=== PATIENT | male | born 2005 | race African-American/Black ===

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

== ENCOUNTER 2023-10-14 08:42 | Emergency (ER) | payer MEDICAID, OTHER ==
[~2023-10-14] VITALS: Ht 188 cm; Wt 59.9 kg
[2023-10-14 08:45] VITALS: BP 115/72; PULSE 98; TEMP 98.2; O2SAT 100
[2023-10-14 09:25] VITALS: BP 106/69; PULSE 98; RESP 18; O2SAT 100
[2023-10-14] MEDS ORDERED: NAPR-1704 PO (10:47)
== END 2023-10-14 11:11 | disposition home or self-care (01) ==
LOC: MED 08:42
DX: S62.660A Nondisplaced fracture of distal phalanx of right index finger, initial encounter for closed fracture (principal); S89.92XA Unspecified injury of left lower leg, initial encounter; J30.9 Allergic rhinitis, unspecified; Z79.1 Long term (current) use of non-steroidal anti-inflammatories (NSAID); W17.89XA Other fall from one level to another, initial encounter; Y93.89 Activity, other specified; Y92.89 Other specified places as the place of occurrence of the external cause; Y99.8 Other external cause status
CPT/HCPCS: 29505; 73110; 73140; 73562; 99284

== ENCOUNTER 2024-01-13 11:19 | Emergency (ER) | payer SELFPAY ==
[~2024-01-13] VITALS: Ht 188 cm; Wt 65.8 kg
[~2024-01-13 11:19] MED LIST: NAPR-1704 PO
[2024-01-13 11:24] VITALS: BP 123/72; PULSE 62; RESP 18; TEMP 97.4; O2SAT 100
[2024-01-13] MEDS ORDERED: ONDA-188 SL (11:59)
[2024-01-13] MEDS ORDERED: FAMO-90 PO (11:59)
[2024-01-13] MEDS ORDERED: IMO2 PO (11:59)
[2024-01-13] MEDS ORDERED: FLONAS NS (11:59)
[2024-01-13 12:27] VITALS: BP 123/72; PULSE 62; RESP 18; TEMP 97.4; O2SAT 100
== END 2024-01-13 12:27 | disposition home or self-care (01) ==
LOC: MED 11:19
DX: R10.9 Unspecified abdominal pain (principal); J30.9 Allergic rhinitis, unspecified; R11.2 Nausea with vomiting, unspecified; R19.7 Diarrhea, unspecified; Z79.899 Other long term (current) drug therapy
CPT/HCPCS: 99281